=== PATIENT | male | born 1945 | race Caucasian/White ===

== ENCOUNTER 2018-03-29 12:23 | Outpatient (CLI) | payer MEDICARE, BC ==
[~2018-03-29] VITALS: Ht 177.8 cm; Wt 93.0 kg
[2018-03-29] MEDS ORDERED: albuterol 2.5 MG/3 ML nebule NEB ONE (13:25)
== END 2018-03-29 23:59 | disposition home or self-care (01) ==
LOC: RT 12:23
PROVIDERS: ATTEND Internal Medicine Pulmonary Disease
DX: J44.9 Chronic obstructive pulmonary disease, unspecified (principal); F17.210 Nicotine dependence, cigarettes, uncomplicated; D45 Polycythemia vera; Z88.0 Allergy status to penicillin
CPT/HCPCS: 94060; 94727; 94729; 94760